=== PATIENT | female | born 1970 | race African-American/Black ===

== ENCOUNTER 2018-12-10 16:30 | Inpatient (IN) | payer MEDICAID ==
[~2018-12-10] VITALS: Ht 152.4 cm; Wt 72.6 kg
[2018-12-10] MEDS ORDERED: FENT-70 TD (16:42)
[2018-12-10] MEDS ORDERED: NORCO (16:42)
[2018-12-10] MEDS ORDERED: ONDANSETRON HCL 4MG/2ML INJ IV PRN (18:15)
[2018-12-10] MEDS ORDERED: DEXTROSE 50% WATER 50ML SYRINGE IV PRN (18:15)
[2018-12-10] MEDS ORDERED: SODIUM CHLORIDE 0.9% 1,000 ML IV ONE (19:15)
[2018-12-10 20:15] LABS: HEMATOCRIT. 39.7 % (36.0-48.0); HEMOGLOBIN. 13.7 g/dL (12.0-16.0); MEAN CORPUSCULAR HEMOGLOBIN 25.7 pg (28.0-32.0); MEAN CORPUSCULAR VOLUME 74.6 fL (81.0-99.0); PLATELET 231 x1000/uL (130-400); RED BLOOD CELL COUNT 5.33 mill/uL (4.2-5.4); RED CELL DISTRIBUTION WIDTH 18.3 % (11.6-14.6)
[2018-12-10 20:20] LABS: CHLORIDE 102 mEq/L (98-107)
[2018-12-10 20:21] LABS: INR 1.1; PROTHROMBIN TIME 10.8 sec (9.6-11.0)
[2018-12-10 20:26] LABS: PHOSPHORUS 2.1 mg/dL (2.5-4.9)
[2018-12-10 20:29] LABS: T4 FREE 1.35 ng/dL (0.76-1.46)
[2018-12-10] MEDS ORDERED: FENTANYL CITRATE/PF 50MCG/ML 2ML VIAL IV ONE (20:45)
[2018-12-10 20:59] LABS: PLATELET ESTIMATE NORMAL
[2018-12-10] MEDS ORDERED: MORPHINE SULFATE 10 MG/ML CPJ IV ONE (22:30)
[2018-12-10] MEDS ORDERED: IOHEXOL-300 100 ML BOTTLE ONE (23:16)
[2018-12-10 23:53] VITALS: BP 150/87
[2018-12-11] VITALS: BP 150/87
[2018-12-11] MEDS ORDERED: SODIUM CHLORIDE 0.9% 1,000 ML IV SCH (00:31)
[2018-12-11 04:00] VITALS: BP 122/86
[2018-12-11] MEDS: MORPHINE SULFATE 4 MG/ML CPJ (NOT FOR IM USE) IV PRN ×4 (04:50→20:24)
[2018-12-11] MEDS ORDERED: LEVOTHYROXINE SODIUM 25MCG TABLET PO ONE (06:00)
[2018-12-11] MEDS: BLOOD SUGAR DIAGNOSTIC STRIP TEST SCH ×4 (06:30→20:25)
[2018-12-11] MEDS ORDERED: LEVOTHYROXINE SODIUM 25MCG TABLET PO SCH (06:45)
[2018-12-11] MEDS ORDERED: METOCLOPRAMIDE HCL 10MG/2ML VIAL IV ONE (06:45)
[2018-12-11 07:00] LABS: CHLORIDE 105 mEq/L (98-107)
[2018-12-11 07:05] LABS: BASOPHILS % 0.3 % (0.0-2.0); EOSINOPHILS % 1.1 % (0.0-5.0); HEMATOCRIT. 34.6 % (36.0-48.0); HEMOGLOBIN. 11.8 g/dL (12.0-16.0); LYMPHOCYTES % 17.6 % (20.0-50.0); MEAN CORPUSCULAR HEMOGLOBIN 25.5 pg (28.0-32.0); MEAN CORPUSCULAR VOLUME 74.4 fL (81.0-99.0); MEAN PLATELET VOLUME 7.8 fl (7.4-10.4); MONOCYTES % 12.4 % (2.0-8.0); NEUTROPHILS % 68.6 % (40.0-76.0); PLATELET 185 x1000/uL (130-400); RED BLOOD CELL COUNT 4.64 mill/uL (4.2-5.4); RED CELL DISTRIBUTION WIDTH 17.8 % (11.6-14.6)
[2018-12-11] MEDS ORDERED: INSULIN LISPRO 100 UNITS/ML SUBCUT SCH (07:15)
[2018-12-11 08:00] VITALS: BP 139/69
[2018-12-11] MEDS: LOSARTAN POTASSIUM 100 MG TABLET PO SCH (09:46)
[2018-12-11 09:52] LABS: CLARITY URINE CLEAR (CLEAR); COLOR URINE YELLOW (YELLOW); KETONES URINE 3+ (NEGATIVE); LEUKOCYTE ESTERASE URINE NEGATIVE (NEGATIVE); NITRITE URINE NEGATIVE (NEGATIVE); OCCULT BLOOD URINE NEGATIVE (NEGATIVE); PH URINE 5.5 (4.5-8.0); PROTEIN URINE 1+ (NEGATIVE); SPECIFIC GRAVITY URINE 1.038 (1.005-1.030); UROBILINOGEN URINE 0.2 E.U./dL (0.2-1.0)
[2018-12-11] MEDS ORDERED: DEXT 5%/0.45% NACL 1000ML 1,000 ML IV SCH (10:45)
[2018-12-11 12:00] VITALS: BP 130/87
[2018-12-11] MEDS ORDERED: POTASSIUM PHOS,M-BASIC-D-BASIC 20 MMOL in DEXT 5% WATER 243.3333 ML IV NR (12:00)
[2018-12-11] MEDS ORDERED: HYDROCODONE/ACETAMINOPHEN 10/325MG TABLET PO PRN (14:30)
[2018-12-11] MEDS ORDERED: ACETAMINOPHEN 325MG TABLET PO PRN (14:30)
[2018-12-11] MEDS ORDERED: GADOBENATE DIMEGLUMINE 529 MG/ML 10ML IV ONE (15:45)
[2018-12-11] MEDS ORDERED: IPRATROPIUM/ALBUTEROL 0.5-3(2.5)MG/3ML NEB HHN PRN (16:15)
[2018-12-11] MEDS: CEPHALEXIN 250MG CAPSULE PO SCH (18:59)
[2018-12-11 20:00] VITALS: BP 130/94
[2018-12-11] MEDS: CLONIDINE 0.1MG TABLET PO PRN (20:23)
[2018-12-11] MEDS: ATORVASTATIN CALCIUM 40MG TABLET PO SCH (20:24)
[2018-12-11] MEDS ORDERED: POTASSIUM CHLORIDE 20MEQ TABLET SR PO ONE (22:00)
[2018-12-11] MEDS: DEXT 5%/0.9% NACL KCL 20MEQ/L 1,000 ML IV SCH (23:13)
[2018-12-12] VITALS (7 sets, daily range): BP systolic 110–151; BP diastolic 70–96
[2018-12-12] MEDS: MORPHINE SULFATE 4 MG/ML CPJ (NOT FOR IM USE) IV PRN ×4 (02:15→21:26)
[2018-12-12] MEDS: BLOOD SUGAR DIAGNOSTIC STRIP TEST SCH ×4 (06:28→20:35)
[2018-12-12] MEDS: LEVOTHYROXINE SODIUM 25MCG TABLET PO SCH (06:29)
[2018-12-12 07:09] LABS: BASOPHILS % 0.4 % (0.0-2.0); EOSINOPHILS % 0.8 % (0.0-5.0); HEMATOCRIT. 33.9 % (36.0-48.0); HEMOGLOBIN. 11.5 g/dL (12.0-16.0); LYMPHOCYTES % 14.5 % (20.0-50.0); MEAN CORPUSCULAR HEMOGLOBIN 25.2 pg (28.0-32.0); MEAN PLATELET VOLUME 7.2 fl (7.4-10.4); MONOCYTES % 13.7 % (2.0-8.0); NEUTROPHILS % 70.6 % (40.0-76.0); PLATELET 175 x1000/uL (130-400); RED BLOOD CELL COUNT 4.57 mill/uL (4.2-5.4)
[2018-12-12 07:27] LABS: CHLORIDE 107 mEq/L (98-107)
[2018-12-12 07:48] LABS: GAMMA GLUTAMYL TRANSPEPTIDASE 10 IU/L (7-32)
[2018-12-12 07:50] LABS: AMYLASE 14 IU/L (25-115); PHOSPHORUS 1.6 mg/dL (2.5-4.9); TOTAL IRON BINDING CAPACITY 237 ug/dL (250-450)
[2018-12-12 07:51] LABS: LDL CHOLESTEROL 49 mg/dL (5-100)
[2018-12-12 07:53] LABS: HDL CHOLESTEROL 35 mg/dL (40-59)
[2018-12-12 08:08] LABS: FOLIC ACID (FOLATE) SERUM 14.7 ng/mL (>5.38)
[2018-12-12] MEDS: LOSARTAN POTASSIUM 100 MG TABLET PO SCH (09:00)
[2018-12-12] MEDS: HYDROCHLOROTHIAZIDE 25MG TABLET PO SCH (09:00)
[2018-12-12] MEDS: CEPHALEXIN 250MG CAPSULE PO SCH ×2 (09:00→17:38)
[2018-12-12] MEDS: DOCUSATE SODIUM 250MG CAPSULE PO SCH ×2 (10:00→17:38)
[2018-12-12] MEDS: DEXT 5%/0.9% NACL KCL 20MEQ/L 1,000 ML IV SCH (11:41)
[2018-12-12] MEDS ORDERED: MAGNESIUM 2 G PREMIX 50 ML IV SCH (12:00)
[2018-12-12] MEDS ORDERED: SIMETHICONE 40 MG/0.6 ML 30ML ONE ×2 (12:15→13:57)
[2018-12-12] MEDS ORDERED: FENTANYL CITRATE/PF 50MCG/ML 2ML VIAL IV PRN (12:54)
[2018-12-12] MEDS ORDERED: FENTANYL CITRATE/PF 50MCG/ML 2ML VIAL ONE ×2 (12:54→13:10)
[2018-12-12] MEDS ORDERED: MIDAZOLAM HCL 5 MG/5 ML VIAL ONE (12:54)
[2018-12-12] MEDS ORDERED: MIDAZOLAM HCL 5 MG/5 ML VIAL IV PRN (12:55)
[2018-12-12] MEDS ORDERED: DIPHENHYDRAMINE 50MG/ML VIAL IV PRN (13:02)
[2018-12-12] MEDS ORDERED: DIPHENHYDRAMINE 50MG/ML VIAL ONE (13:10)
[2018-12-12] MEDS ORDERED: SODIUM CHLORIDE 0.9% 10ML VIAL ONE (13:57)
[2018-12-12] MEDS: PANTOPRAZOLE SODIUM 40 MG/VIAL IV SCH (15:03)
[2018-12-12] MEDS ORDERED: POTASSIUM CHLORIDE INJ 20 MEQ in DEXT 5%/0.9% NACL 1,000 ML IV SCH (17:00)
[2018-12-12] MEDS ORDERED: DEXT 5%/0.9% NACL KCL 20MEQ/L 1,000 ML IV SCH ×2 (17:00)
[2018-12-12] MEDS: ATORVASTATIN CALCIUM 40MG TABLET PO SCH (20:42)
[2018-12-12] MEDS ORDERED: WATER IV NR (22:00)
[2018-12-12] MEDS ORDERED: SODIUM PHOS M BASIC D BASIC IV NR (22:00)
[2018-12-12] MEDS ORDERED: DEXT IV NR (22:00)
[2018-12-13] VITALS: BP 127/90
[2018-12-13] MEDS: DEXT 5%/0.9% NACL KCL 20MEQ/L 1,000 ML IV SCH ×2 (01:27→16:09)
[2018-12-13] MEDS: MORPHINE SULFATE 4 MG/ML CPJ (NOT FOR IM USE) IV PRN ×5 (03:01→23:47)
[2018-12-13 04:00] VITALS: BP 124/85
[2018-12-13] MEDS: LEVOTHYROXINE SODIUM 25MCG TABLET PO SCH (06:02)
[2018-12-13] MEDS: BLOOD SUGAR DIAGNOSTIC STRIP TEST SCH ×4 (06:05→20:33)
[2018-12-13 08:00] VITALS: BP 139/95
[2018-12-13 08:35] LABS: BASOPHILS % 0.3 % (0.0-2.0); HEMATOCRIT. 34.9 % (36.0-48.0); HEMOGLOBIN. 11.9 g/dL (12.0-16.0); LYMPHOCYTES % 14.6 % (20.0-50.0); MEAN CORPUSCULAR HEMOGLOBIN 25.1 pg (28.0-32.0); MEAN CORPUSCULAR VOLUME 73.9 fL (81.0-99.0); MEAN PLATELET VOLUME 6.8 fl (7.4-10.4); MONOCYTES % 12.5 % (2.0-8.0); NEUTROPHILS % 71.6 % (40.0-76.0); PLATELET 179 x1000/uL (130-400); RED BLOOD CELL COUNT 4.72 mill/uL (4.2-5.4); RED CELL DISTRIBUTION WIDTH 18.5 % (11.6-14.6)
[2018-12-13 08:40] LABS: CHLORIDE 111 mEq/L (98-107)
[2018-12-13] MEDS: HYDROCHLOROTHIAZIDE 25MG TABLET PO SCH (08:58)
[2018-12-13] MEDS: DOCUSATE SODIUM 250MG CAPSULE PO SCH ×2 (08:58→17:58)
[2018-12-13] MEDS: MAGNESIUM/ALUMINUM HYDROXIDE/SIMETHICONE 30ML UDC PO PRN ×2 (08:58→09:01)
[2018-12-13] MEDS: PANTOPRAZOLE SODIUM 40 MG/VIAL IV SCH (08:59)
[2018-12-13] MEDS: CEPHALEXIN 250MG CAPSULE PO SCH ×2 (09:01→17:58)
[2018-12-13] MEDS: LOSARTAN POTASSIUM 100 MG TABLET PO SCH (09:12)
[2018-12-13] MEDS: LACTULOSE 20G/30ML UDC PO SCH ×3 (10:30→21:40)
[2018-12-13 10:50] LABS: PHOSPHORUS 2.8 mg/dL (2.5-4.9)
[2018-12-13] MEDS: LIDOCAINE 5% PATCH TOP SCH (15:52)
[2018-12-13 16:57] VITALS: BP 155/99
[2018-12-13 20:00] VITALS: BP 131/98
[2018-12-13] MEDS: ATORVASTATIN CALCIUM 40MG TABLET PO SCH (20:38)
[2018-12-13] MEDS: CLONIDINE 0.1MG TABLET PO PRN (20:38)
[2018-12-13 21:00] VITALS: BP 130/80
[2018-12-13] MEDS ORDERED: FENTANYL 75MCG/HR PATCH TOP SCH (21:00)
[2018-12-14] VITALS: BP 122/85
[2018-12-14 04:00] VITALS: BP 127/68
[2018-12-14] MEDS: LACTULOSE 20G/30ML UDC PO SCH ×2 (05:39→14:00)
[2018-12-14] MEDS: LEVOTHYROXINE SODIUM 25MCG TABLET PO SCH (05:47)
[2018-12-14] MEDS: BLOOD SUGAR DIAGNOSTIC STRIP TEST SCH ×3 (05:48→16:45)
[2018-12-14] MEDS: MORPHINE SULFATE 4 MG/ML CPJ (NOT FOR IM USE) IV PRN (05:48)
[2018-12-14 07:20] LABS: BASOPHILS % 0.3 % (0.0-2.0); EOSINOPHILS % 1.1 % (0.0-5.0); HEMATOCRIT. 36.6 % (36.0-48.0); HEMOGLOBIN. 12.7 g/dL (12.0-16.0); LYMPHOCYTES % 14.4 % (20.0-50.0); MEAN CORPUSCULAR HEMOGLOBIN 25.3 pg (28.0-32.0); MEAN CORPUSCULAR VOLUME 72.9 fL (81.0-99.0); MONOCYTES % 13.3 % (2.0-8.0); NEUTROPHILS % 70.9 % (40.0-76.0); PLATELET 210 x1000/uL (130-400); RED BLOOD CELL COUNT 5.01 mill/uL (4.2-5.4); RED CELL DISTRIBUTION WIDTH 18.7 % (11.6-14.6)
[2018-12-14 07:32] LABS: CHLORIDE 110 mEq/L (98-107)
[2018-12-14 08:00] VITALS: BP 111/79
[2018-12-14] MEDS ORDERED: BARIUM SULFATE 450ML ORAL SUSP PO ONE (09:00)
[2018-12-14] MEDS: DOCUSATE SODIUM 250MG CAPSULE PO SCH ×2 (09:51→17:00)
[2018-12-14] MEDS: LOSARTAN POTASSIUM 100 MG TABLET PO SCH (09:51)
[2018-12-14] MEDS: PANTOPRAZOLE SODIUM 40 MG/VIAL IV SCH (09:51)
[2018-12-14] MEDS: CEPHALEXIN 250MG CAPSULE PO SCH ×2 (09:51→17:00)
[2018-12-14] MEDS: HYDROCHLOROTHIAZIDE 25MG TABLET PO SCH (09:51)
[2018-12-14] MEDS: LIDOCAINE 5% PATCH TOP SCH (09:53)
[2018-12-14 12:00] VITALS: BP_SYST 124; BP_SYST 128; BP_DIAS 82; BP_DIAS 88
[2018-12-14 16:00] VITALS: BP 124/88
== END 2018-12-14 18:43 | disposition left against medical advice (07) ==
LOC: ER 16:30 → 5WST 21:07 → ENRESERV 22:26
PROVIDERS: ADMIT Family Medicine Adult Medicine; ATTEND Family Medicine Adult Medicine
PROC: 0DB68ZX Excision of Stomach, Via Natural or Artificial Opening Endoscopic, Diagnostic (ICD-10-PCS; principal; 2018-12-12)
DX: K80.20 Calculus of gallbladder without cholecystitis without obstruction (principal); C78.01 Secondary malignant neoplasm of right lung; C78.02 Secondary malignant neoplasm of left lung; C79.51 Secondary malignant neoplasm of bone; E44.1 Mild protein-calorie malnutrition; E86.0 Dehydration; C55 Malignant neoplasm of uterus, part unspecified; E83.42 Hypomagnesemia; E03.9 Hypothyroidism, unspecified; E87.6 Hypokalemia; I10 Essential (primary) hypertension; D50.9 Iron deficiency anemia, unspecified; E11.9 Type 2 diabetes mellitus without complications; E78.5 Hyperlipidemia, unspecified; E83.39 Other disorders of phosphorus metabolism; G89.3 Neoplasm related pain (acute) (chronic); K29.70 Gastritis, unspecified, without bleeding; K44.9 Diaphragmatic hernia without obstruction or gangrene; K59.09 Other constipation; K59.03 Drug induced constipation; T40.2X5A Adverse effect of other opioids, initial encounter; Z53.21 Procedure and treatment not carried out due to patient leaving prior to being seen by health care provider; Z82.49 Family history of ischemic heart disease and other diseases of the circulatory system; Z83.3 Family history of diabetes mellitus; Z79.84 Long term (current) use of oral hypoglycemic drugs; Z87.81 Personal history of (healed) traumatic fracture; Z92.21 Personal history of antineoplastic chemotherapy; Z80.3 Family history of malignant neoplasm of breast; Z79.899 Other long term (current) drug therapy; Z98.84 Bariatric surgery status; Z87.440 Personal history of urinary (tract) infections; Z92.3 Personal history of irradiation; Z90.710 Acquired absence of both cervix and uterus; Z90.721 Acquired absence of ovaries, unilateral; Y92.89 Other specified places as the place of occurrence of the external cause; Z68.31 Body mass index [BMI] 31.0-31.9, adult
CPT/HCPCS: 36415; 71045; 71100; 72157; 74177; 76700; 78227; 78306; 80048; 80061; 82150; 82607; 82728; 82746; 82962; 82977; 83036; 83540; 83550; 83615; 83735; 84100; 84134; 84439; 84443; 84484; 85007; 85027; 85044; 88305; 88312; 88313; 93005; 93306; 93970; 96361; 96374; 96375; 97162; 97166; 99285; A9503; A9537; A9577; C9113; J1200; J2250; J2270; J2765; J3010; J3475; J3480; J3490; J7030; J7042; J7060; Q9967